=== PATIENT | male | born 1995 | race Caucasian/White ===

== ENCOUNTER 2019-06-13 00:41 | Emergency (ER) | payer OTHER ==
[2019-06-13] MEDS ORDERED: Ketorolac Tromethamine 30 MG/ML VIAL ONE (01:14)
[2019-06-13] MEDS ORDERED: Adacel (T-DAP) 0.5 ML SYRINGE ONE (01:25)
[2019-06-13] MEDS ORDERED: Bacitracin 1 PK ONE (01:28)
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
== END 2019-06-13 01:48 | disposition home or self-care (01) ==
LOC: ERS 00:41
DX: S00.83XA Contusion of other part of head, initial encounter (principal); S60.512A Abrasion of left hand, initial encounter; V59.40XA Driver of pick-up truck or van injured in collision with unspecified motor vehicles in traffic accident, initial encounter
CPT/HCPCS: 70450; 70486; 90471; 90715; 96374; G0390; J1885